=== PATIENT | male | born 1960 | race Caucasian/White ===

== ENCOUNTER 2018-09-04 20:35 | Emergency (ER) | payer MEDICARE, MEDICAID ==
[~2018-09-04] VITALS: Ht 170.2 cm; Wt 63.0 kg
[~2018-09-04 20:35] MED LIST: CELE200C PO; CYCL-394 PO; IBUP-1984 PO; LANTUS SQ; METF500T PO; PRE1OS OP; TRAM50TA2 PO
[2018-09-04] MEDS ORDERED: TETanus/Pertussis (Acell)/Diphther VAC/PF (Tdap-Adult) 0.5ml syringe IM ONE (21:00)
[2018-09-04 21:35] VITALS: BP 151/83
== END 2018-09-04 21:36 | disposition home or self-care (01) ==
LOC: ER 20:35
DX: S01.81XA Laceration without foreign body of other part of head, initial encounter (principal); I10 Essential (primary) hypertension; E11.9 Type 2 diabetes mellitus without complications; Z88.0 Allergy status to penicillin; Z79.899 Other long term (current) drug therapy; Z79.4 Long term (current) use of insulin; W01.198A Fall on same level from slipping, tripping and stumbling with subsequent striking against other object, initial encounter; Y93.89 Activity, other specified; Y92.89 Other specified places as the place of occurrence of the external cause; Y99.8 Other external cause status
CPT/HCPCS: 12011; 90471; 90715; 99283